=== PATIENT | female | born 1990 | race Caucasian/White ===

== ENCOUNTER → 2017-03-26 | Outpatient (REF) | payer BC | LOC: M LAB REF 13:20 | PROVIDERS: ATTEND Physician Assistant | DX: R30.0 Dysuria (principal) ==

== ENCOUNTER → 2017-04-14 | Outpatient (REF) | payer BC | LOC: M LAB REF 18:00 | PROVIDERS: ATTEND Advanced Practice Midwife | DX: Z12.4 Encounter for screening for malignant neoplasm of cervix (principal) ==

== ENCOUNTER → 2017-05-22 | Outpatient (REF) | payer BC | LOC: M LAB REF 16:09 | DX: R30.0 Dysuria (principal) | CPT/HCPCS: 87186 ==